=== PATIENT | female | born 1980 | race Caucasian/White ===

== ENCOUNTER 2016-11-16 10:43 | Inpatient (IN) | payer OTHER ==
[2016-11-16] MEDS ORDERED: Sodium Chloride 0.9% 1,000 ML IV ONE (11:10)
[2016-11-16] MEDS ORDERED: Scopolamine 1.5 MG Transdermal Patch TRDERM ONE (11:14)
[2016-11-16] MEDS ORDERED: Scopolamine 1.5 MG Transdermal Patch ONE (11:16)
[2016-11-16] MEDS ORDERED: ePHEDrine 50 MG/ML SDV IV ONE (11:30)
[2016-11-16] MEDS ORDERED: Morphine PF 10 MG/10 ML SDV ONE (11:30)
[2016-11-16] MEDS ORDERED: fentaNYL 100 MCG/2 ML SDV ITHECAL ONE (11:30)
[2016-11-16] MEDS ORDERED: Bupivacaine 0.75%/D5W 2 ML Amp ISPINAL ONE (11:30)
[2016-11-16] MEDS ORDERED: Naltrexone 50 MG Tab PO PRN (12:06)
[2016-11-16] MEDS ORDERED: Ondansetron 4 MG/2 ML SDV IVPUSH PRN (12:06)
[2016-11-16] MEDS ORDERED: Famotidine/Normal Saline 20 MG in Premix Bag 1 BAG IV PRN (12:06)
[2016-11-16] MEDS ORDERED: Promethazine 12.5 MG in Sodium Chloride 0.9% 50 ML IV PRN (12:06)
[2016-11-16] MEDS ORDERED: diphenhydrAMINE 50 MG/ML SDV IV PRN (12:06)
[2016-11-16] MEDS ORDERED: Scopolamine 1.5 MG Transdermal Patch TOP ONE (12:06)
[2016-11-16] MEDS ORDERED: ePHEDrine 50 MG/ML SDV IVPUSH PRN (12:06)
[2016-11-16] MEDS ORDERED: Nalbuphine 10 MG/1 ML Vial IVPUSH PRN (12:06)
[2016-11-16] MEDS ORDERED: diphenhydrAMINE 50 MG/ML SDV IVPUSH PRN (12:06)
[2016-11-16] MEDS ORDERED: Naloxone 0.4 MG/ML SDV IVPUSH PRN (12:06)
[2016-11-16] MEDS ORDERED: Promethazine 6.25 MG in Sodium Chloride 0.9% 50 ML IV PRN (12:06)
[2016-11-16] MEDS ORDERED: Lactated Ringers 500 ML IV SCH ×2 (12:15)
[2016-11-16] MEDS ORDERED: Oxytocin/Normal Saline 10 UNIT/1,000 ML BAG IV SCH (14:30)
[2016-11-16] MEDS ORDERED: Sodium Chloride 0.9% 10 ML Syringe FLUSH PRN (16:54)
[2016-11-16] MEDS: Ibuprofen 600 MG Tab PO PRN (19:38)
[2016-11-17] MEDS ORDERED: Lidocaine 1% 20 ML MDV INJECT ONE (02:06)
[2016-11-17] MEDS: Ibuprofen 600 MG Tab PO PRN (07:39)
[2016-11-17] MEDS ORDERED: Diphtheria,Pertussis(Acell),Tetanus Vaccine 0.5 ML SDV IM ONE (09:00)
[2016-11-17] MEDS ORDERED: Measles, Mumps & Rubella Vaccine 0.5 ML SDV SUBCUT ONE (09:00)
[2016-11-17 13:22] VITALS: BP 101/60
--- NOTE | 2016-11-18 14:27 | HP ---
ADMISSION DATE: 11/16/2016 HISTORY OF PRESENT ILLNESS: Meghan Pate is a 36-year-old multigravida female, admitted with premonitional labor. Pain will off and on for about five days duration. Progressive in nature, not complicated by ruptured membranes, no bleeding of significance. Baby remained active during this time. She is nearing 42 weeks gestation. I summoned her to consider delivery. Please see accompanying records group B rectovaginal culture negative. On admission, she was found to be 6 cm to 7 cm dilatation, -2 station. Intact membranes, satisfactory well being. Anesthesia was consulted for an intrathecal was placed with good success. Amniotomy was performed. Clear amniotic fluid. Labor was a little reluctant, little pesky, a little unpredictable. Maternal effort was cooperative. Pitocin was augmented late in the first stage of labor. Epidural was wearing off. Analgesic benefit was less. She was summoned to delivery. Over the course of about 20 minutes, pushed well, last two maternal efforts were successful, delivered without episiotomy, CARLOS presentation. Both nares and oropharynx were suctioned, no nuchal cord. Delivered with augment of dystocia. Female infant, 9 pounds 2 ounces, scores of 9 and 10. In such a hurry, calamity with delivery, cord was stripped, mom had wished to have baby on tummy, cord was clamped and cut and given to nurses for routine resuscitation. Pitocin had been discontinued prior to completion of second stage of labor. Three cord vessels identified. There was spontaneous placental separation, three cord vessels intact. Uterine tone was maintained by massage and 10 units of intramuscular Pitocin. Cervix was observed. There was a delayed absence of the cervix required some gentle assistance. Using a right angled retractors, cervix was without laceration. Perineum was infiltrated with 2% lidocaine and repaired in complex fashion of a second degree tear. Rectal exam unremarkable. No periurethral injury. Blood loss 200 mL. ASSESSMENT: 1. Term intrauterine . 2. Vaginal delivery with intrathecal analgesia, Pitocin augmentation. 3. Normal spontaneous vaginal delivery without episiotomy. 4. Second-degree tears repair. 5. A 9 pounds 2 ounce female . scores are 9 and 9. 6. Planned nursing for nutrition plan routine nursery course, post intrathecal care and intervention, close observation, bleeding, and proceed accordingly. /[id number] CHRISTEN/ZOIE
--- NOTE | 2016-11-19 03:59 | DISCH ---
DISCHARGE DATE: 11/17/2016 SUBJECTIVE: Meghan Pate is a 36-year-old multigravida female, two days . Up, ambulating, and doing well. Minimal lochia, minimal flow. Comfortable with ambulation. Hemoglobin 11.3. OBJECTIVE: U-2 tone satisfactory, perineum intact. ASSESSMENT: day 1, no problems. PLAN: Discharge home. Lengthy instructions and care, vitamins, OTC analgesics, nursing, and well being. Recheck six weeks. /[id number] CHRISTEN/ZOIE
== END 2016-11-17 18:25 | disposition home or self-care (01) | DRG 775 ==
LOC: FB.OBCHECK 10:43 → FB.OB 10:43 → FB.OBCHECK 11:19
PROVIDERS: ADMIT Family Medicine; ATTEND Family Medicine
PROC: 10E0XZZ Delivery of Products of Conception, External Approach (ICD-10-PCS; principal; 2016-11-16)
PROC: 0KQM0ZZ Repair Perineum Muscle, Open Approach (ICD-10-PCS; 2016-11-16)
PROC: 10907ZC Drainage of Amniotic Fluid, Therapeutic from Products of Conception, Via Natural or Artificial Opening (ICD-10-PCS; 2016-11-16)
PROC: 3E0R3CZ (ICD-10-PCS; 2016-11-16)
DX: O70.1 Second degree perineal laceration during delivery (principal); Z37.0 Single live birth; Z3A.41 41 weeks gestation of pregnancy
CPT/HCPCS: 36415; 85018; 90707; 90715; 99211; A9270-GY; J2270; J2590; J3010; J7040